=== PATIENT | male | born 1955 | race Caucasian/White ===

== ENCOUNTER 2017-05-13 04:17 | Emergency (ER) | payer BC ==
[2017-05-13] MEDS ORDERED: methylPREDNISolone Sod Succ/PF 125 MG/2 ML VIAL ONE (04:47)
[2017-05-13] MEDS ORDERED: Water For Inject, Bacteriostat 30 ML ONE (04:47)
[2017-05-13 04:58] LABS: #Eosinphils 0.4 thou/uL (0.0-0.7); #Lymphocytes 2.4 thou/uL (1.20-3.40); #Monocytes 0.7 thou/uL (0.11-0.59); #Neutrophils 6.5 thou/uL (1.40-6.50); %Basophils 0.4 % (0.0-1.0); %Eosinophils 3.6 % (0.0-10.0); %Lymphocytes 23.7 % (21.0-51.0); Hematocrit 49.6 % (42.0-52.0); Mean Platelet Volume 7.3 fL (7.4-10.4); Red Blood Cell (RBC) Count 5.81 mill/uL (4.70-6.10)
[2017-05-13] MEDS ORDERED: Azithromycin 250 MG TAB ONE (05:08)
[2017-05-13 05:24] LABS: Anion Gap 14 mmol/L (10-20); BUN (Urea Nitrogen) 12 mg/dL (8.4-25.7); Calc. Creatinine Clearance 0 mL/min (70-130); Calcium 9.5 mg/dL (7.8-10.44); Carbon Dioxide 26 mmol/L (23-31); Chloride 106 mmol/L (98-107); Estimated GFR-MDRD 75
--- NOTE | 2017-05-13 08:12 | RAD ---
PA AND LATERAL CHEST XRAY: DATE: 05/13/17. HISTORY: Dyspnea and wheezing. COMPARISON: 11/29/16. FINDINGS: Cardiac silhouette and pulmonary vasculature are within normal limits. Interstitial and parenchymal densities at each lung base have resolved. Lungs are clear on today's examination. Radiopaque den sity again overlies the cardiac silhouette. This could potentially represent a septal occluder don ce. This is unchanged compared to the prior exam. No other interval change. IMPRESSION: No acute cardiopulmonary process. POS: PATRICIA
--- NOTE | 2017-05-18 12:22 | EKG ---
Test Reason : Blood Pressure : / mmHG Vent. Rate : 089 BPM Atrial Rate : 089 BPM P-R Int : 210 ms QRS Dur : 100 ms QT Int : 372 ms P-R-T Axes : 059 103 048 degrees QTc Int : 452 ms Sinus rhythm with 1st degree A-V block with Fusion complexes Incomplete right bundle branch block Possible Right ventricular hypertrophy Abnormal ECG No specific ST-T segment abnormalities Confirmed by CHARLOTTE BHAKTA ([id number]), editor city [place] HALLMAN ([id number]) on 05/18/2017 12:22:01 PM Referred By: Confirmed By:CHARLOTTE BHAKTA
== END 2017-05-13 06:00 | disposition home or self-care (01) ==
LOC: ERS 04:17
DX: J45.901 Unspecified asthma with (acute) exacerbation (principal); E78.5 Hyperlipidemia, unspecified; F41.9 Anxiety disorder, unspecified; F32.9 Major depressive disorder, single episode, unspecified
CPT/HCPCS: 71020; 80048; 85025; 93005; 94640; 96374; J2930; J7620

== ENCOUNTER 2017-10-21 21:19 | Emergency (ER) | payer BC ==
[2017-10-21] MEDS ORDERED: Lorazepam 2 MG/ML VIAL ONE (21:46)
[2017-10-21 22:13] LABS: #Eosinphils 0.2 thou/uL (0.0-0.7); #Lymphocytes 1.8 thou/uL (1.20-3.40); #Monocytes 0.6 thou/uL (0.11-0.59); #Neutrophils 5.6 thou/uL (1.40-6.50); %Basophils 0.5 % (0.0-1.0); %Eosinophils 2.3 % (0.0-10.0); %Lymphocytes 22.2 % (21.0-51.0); %Monocytes 7.4 % (0.0-10.0); %Neutrophils 67.7 % (42.0-75.0); Hemoglobin 15.6 g/dL (14.0-18.0); Mean Corpuscular HGB CONC 33.6 g/dL (32.0-36.0); Mean Corpuscular Hemoglobin 28.1 pg (27.0-31.0); Mean Corpuscular Volume 83.6 fl (80.0-94.0); Platelet Count 195 thou/uL (130-400); RBC Distribution Width 11.7 % (11.5-14.5); Red Blood Cell (RBC) Count 5.58 mill/uL (4.70-6.10); White Blood Cell (WBC) Count 8.3 thou/uL (4.8-10.8)
[2017-10-21 22:34] LABS: Bilirubin Negative (Negative); Blood, Urine Negative (Negative); Clarity CLEAR (Clear); Glucose, Urine (Dipstick) Negative (Negative); Leukocyte Negative (Negative); Nitrite Negative (Negative); Protein, Urine (Dipstick) Negative (Neg-Trace); Specific Gravity, Urine 1.009 (1.002-1.036); Urobilinogen 0.2 mg/dL (0.2-1.0)
[2017-10-21 22:35] LABS: ALT (SGPT) 18 U/L (8-55); AST (SGOT) 16 U/L (5-34); Acetaminophen Less than 6.0 mcg/mL (10.0-30.0); Albumin 4.3 g/dL (3.4-4.8); Alcohol Less than 10 mg/dL (Less than 10); Alkaline Phosphatase 85 U/L (40-150); Anion Gap 14 mmol/L (10-20); BUN (Urea Nitrogen) 11 mg/dL (8.4-25.7); Bilirubin, Total 0.7 mg/dL (0.2-1.2); Calc. Creatinine Clearance 0 mL/min (70-130); Calcium 9.6 mg/dL (7.8-10.44); Carbon Dioxide 23 mmol/L (23-31); Chloride 103 mmol/L (98-107); Estimated GFR-MDRD 72; Globulin 2.7 g/dL (2.4-3.5); Glucose 115 mg/dL (80-115); Lipase 54 U/L (8-78); Potassium 3.5 mmol/L (3.5-5.1); Salicylate Less than 8.0 mg/dL (15.0-30.0); Sodium 136 mmol/L (136-145)
[2017-10-21 22:41] LABS: Amphetamine Not Detected (NotDetected); Barbiturates Screen Not Detected (NotDetected); Benzodiazepine Screen Not Detected (NotDetected); Cocaine Metabolite Screen Not Detected (NotDetected); Medtox Control Line Valid? VALID (VALID); Medtox Reader # READER 4; Methadone Not Detected (NotDetected); Methamphetamine Not Detected (NotDetected); Opiate Screen Not Detected (NotDetected); Oxycodone Screen Not Detected (NotDetected); Phencyclidine (PCP) Not Detected (NotDetected); THC/Cannabinoid Screen Not Detected (NotDetected); Tricyclic Screen Not Detected (NotDetected)
--- NOTE | 2017-10-26 11:45 | EKG ---
Test Reason : Blood Pressure : / mmHG Vent. Rate : 111 BPM Atrial Rate : 111 BPM P-R Int : 204 ms QRS Dur : 118 ms QT Int : 328 ms P-R-T Axes : 022 071 000 degrees QTc Int : 446 ms Sinus tachycardia Possible Left atrial enlargement Right bundle branch block Possible Inferior infarct , age undetermined Abnormal ECG Confirmed by JIMMY GRANDA, YELENA Gonzalez ([id number]), managing editor SWETHA JOHNSON ([id number]) on 10/26/2017 11:44:26 AM Referred By: Confirmed By:YELENA MARQUEZ MD
== END 2017-10-21 23:55 | disposition home or self-care (01) ==
LOC: ERS 21:19
DX: F41.9 Anxiety disorder, unspecified (principal); E78.5 Hyperlipidemia, unspecified; I25.2 Old myocardial infarction; F32.9 Major depressive disorder, single episode, unspecified; Z79.82 Long term (current) use of aspirin; Z79.899 Other long term (current) drug therapy
CPT/HCPCS: 80053; 80306; 80307; 81003; 83690; 84443; 85025; 93005; 96372; J2060

== ENCOUNTER 2020-07-06 10:00 | Outpatient (CLI) | payer MEDICARE ==
--- NOTE | 2020-07-06 10:32 | RAD ---
EXAM: Two views chest PROVIDED CLINICAL HISTORY: Dyspnea. COMPARISON: 05/13/2017 FINDINGS: Cardiac silhouette is within normal limits. Metallic occlusion device overlies the right medial aspec t of the cardiac silhouette also seen on prior exam. Pulmonary vasculature is within normal limits. Atelectasis is present at the right lung base. Lungs otherwise appear clear. There is prominence of t he left hilar structures, but similar appearance was seen on manager technology CT the chest in 2017, this likely represents prominence of the left main pulmonary artery which was noted on CT exam. A moderate -sized hiatal hernia is now present in the retrocardiac region. No other interval change. IMPRESSION: 1. Interval development of a moderate-sized hiatal hernia when compared to prior exam in 2017. 2. Atelectasis right lung base..
== END 2020-07-06 10:01 | disposition home or self-care (01) ==
LOC: BICRAD 10:00
PROVIDERS: ATTEND Internal Medicine Pulmonary Disease
DX: R06.00 Dyspnea, unspecified (principal); J98.11 Atelectasis; K44.9 Diaphragmatic hernia without obstruction or gangrene
CPT/HCPCS: 71046

== ENCOUNTER 2020-09-22 19:45 | Emergency (ER) | payer MEDICARE, OTHER ==
--- NOTE | 2020-09-22 20:10 | RAD ---
PORTABLE CHEST: 09/22/20 PROVIDED CLINICAL HISTORY: Dyspnea. FINDINGS: Comparison 09/26/16. The cardiac silhouette appears enlarged, but may be at least partially on the basis of portable techn ique. No focal consolidation, pleural fluid, or pneumothorax apparent. IMPRESSION: No evidence an acute cardiopulmonary process. POS: BESSY
[2020-09-22] MEDS ORDERED: methylPREDNISolone Sod Succ/PF 125 MG/2 ML VIAL ONE (20:13)
[2020-09-22] MEDS ORDERED: Albuterol 200 PUFF (6.7GM INHALER) ONE (20:24)
[2020-09-22 20:31] LABS: #Basophils 0.1 thou/uL (0.0-0.2); #Eosinphils 0.4 thou/uL (0.0-0.7); #Lymphocytes 2.3 thou/uL (1.20-3.40); #Monocytes 0.8 thou/uL (0.11-0.59); #Neutrophils 7.4 thou/uL (1.40-6.50); %Basophils 0.5 % (0.0-1.0); %Eosinophils 3.3 % (0.0-10.0); %Lymphocytes 20.7 % (21.0-51.0); %Monocytes 7.6 % (0.0-10.0); Hemoglobin 16.2 g/dL (14.0-18.0); Mean Corpuscular HGB CONC 32.6 g/dL (32.0-36.0); Mean Corpuscular Hemoglobin 27.9 pg (27.0-31.0); Mean Corpuscular Volume 85.6 fL (78.0-98.0); Mean Platelet Volume 7.6 fL (7.4-10.4); Platelet Count 211 thou/uL (130-400); RBC Distribution Width 12.9 % (11.5-14.5); White Blood Cell (WBC) Count 10.9 thou/uL (4.8-10.8)
[2020-09-22 20:45] LABS: ALT (SGPT) 25 U/L (8-55); AST (SGOT) 18 U/L (5-34); Albumin 4.3 g/dL (3.4-4.8); Alkaline Phosphatase 94 U/L (40-110); Anion Gap 13 mmol/L (10-20); BUN (Urea Nitrogen) 18 mg/dL (8.4-25.7); Bilirubin, Total 0.5 mg/dL (0.2-1.2); Calc. Creatinine Clearance 0 mL/min (70-130); Calcium 9.3 mg/dL (7.8-10.44); Carbon Dioxide 29 mmol/L (23-31); Chloride 103 mmol/L (98-107); Globulin 3.1 g/dL (2.4-3.5); Glucose 110 mg/dL (80-115); Potassium 3.6 mmol/L (3.5-5.1); Protein, Total 7.4 g/dL (5.8-8.1); Sodium 141 mmol/L (136-145)
== END 2020-09-22 21:09 | disposition home or self-care (01) ==
LOC: ERS 19:45
DX: J44.9 Chronic obstructive pulmonary disease, unspecified (principal); I10 Essential (primary) hypertension; E78.5 Hyperlipidemia, unspecified; I25.10 Atherosclerotic heart disease of native coronary artery without angina pectoris; I25.2 Old myocardial infarction; E78.00 Pure hypercholesterolemia, unspecified; Z79.51 Long term (current) use of inhaled steroids; Z79.899 Other long term (current) drug therapy; Z79.82 Long term (current) use of aspirin; E11.9 Type 2 diabetes mellitus without complications; Z79.84 Long term (current) use of oral hypoglycemic drugs; J45.31 Mild persistent asthma with (acute) exacerbation; Z20.822 Contact with and (suspected) exposure to COVID-19
CPT/HCPCS: 71045; 80053; 83880; 84484; 85025; 87040; 93005; 94664; 96374; 99285; U0003; U0005; 36415; 87635; J2930

== ENCOUNTER 2021-09-21 10:30 | Inpatient (IN) | payer MEDICARE, OTHER ==
[2021-09-21 12:35] VITALS: BMI 40.8
[2021-09-26] MEDS ORDERED: Acetaminophen 500 MG TAB ONE (08:14)
[2021-09-26] MEDS ORDERED: Ketorolac Tromethamine 30 MG/ML VIAL ONE (08:14)
[2021-09-26] MEDS ORDERED: Midazolam HCl 2 mg/2 ml Vial ONE (08:42)
[2021-09-26] MEDS ORDERED: Fentanyl 250 MCG/5 ML VIAL ONE ×2 (08:42→10:07)
[2021-09-26] MEDS ORDERED: Albuterol Sulfate 2.5 mg/3 ml Neb ONE (09:11)
[2021-09-26] MEDS ORDERED: Xylocaine 1% w/ Epi 1:100K 10 ML VIAL ONE (10:05)
[2021-09-26] MEDS ORDERED: Bupivacaine 0.25% HCL 30 ML VIAL ONE (10:05)
[2021-09-26] MEDS ORDERED: Dexmedetomidine 200 MCG/2 ML VIAL ONE (10:07)
[2021-09-26] MEDS ORDERED: Sodium Chloride 0.9% 100 ML ONE (10:16)
[2021-09-26] MEDS ORDERED: cefOXitin 2 GM VIAL ONE (10:16)
[2021-09-26] MEDS ORDERED: PROPOFOL 200 MG/20 ML VIAL ONE (10:31)
[2021-09-26] MEDS ORDERED: Bupivacaine HCl 0.5%/Epinephrine 1:200,000/PF 30 ml Vial ONE (10:31)
[2021-09-26] MEDS ORDERED: Lidocaine 1% PF 5 ML VIAL ONE (10:31)
[2021-09-26] MEDS ORDERED: Rocuronium Bromide 10 MG/ML (10ML VIAL) ONE (10:31)
[2021-09-26] MEDS ORDERED: PHENYLEPHRINE-NS 100 MCG/ML 10 ML SYRINGE ONE (10:31)
[2021-09-26] MEDS ORDERED: ePHEDrine 50 MG/ML VIAL ONE (10:31)
[2021-09-26] MEDS ORDERED: cefOXitin Sodium/Dextrose 2 GM/50 ML BAG ONE (12:17)
[2021-09-26] MEDS ORDERED: SUGAMMADEX SODIUM 200 MG/2 ML VIAL ONE (12:17)
[2021-09-26] MEDS ORDERED: Promethazine HCl 25 MG/ML VIAL IVPB PRN (13:45)
[2021-09-26] MEDS ORDERED: Ondansetron HCl/PF 4 MG/2 ML Vial IVP PRN (13:45)
[2021-09-26] MEDS ORDERED: Promethazine HCl 25 MG/ML VIAL IM PRN ×2 (13:45→13:55)
[2021-09-26] MEDS ORDERED: hydrALAZINE 20 MG/ML VIAL SLOW IVP PRN (13:55)
[2021-09-26] MEDS ORDERED: Morphine 4 MG/ML VIAL SLOW IVP PRN ×2 (13:55→15:37)
[2021-09-26] MEDS ORDERED: Ondansetron PF 4 MG/2 ML Vial IVP PRN (13:55)
[2021-09-26] MEDS ORDERED: Albuterol Sulfate 2.5 mg/3 ml Neb NEB PRN (15:30)
[2021-09-26] MEDS: Ketorolac Tromethamine 30 MG/ML VIAL IVP SCH ×2 (16:14→23:50)
[2021-09-26] MEDS: Mometasone 200 MCG/Formoterol 5 MCG 120 PUFF INHALER INH SCH (18:43)
[2021-09-26] MEDS: D5 1/2 NS w/20 mEq KCL 1,000 ML IV SCH ×2 (18:53→21:27)
[2021-09-26] MEDS: Enoxaparin Sodium 40 MG/0.4 ML SYRINGE SC SCH (21:27)
[2021-09-26] MEDS: Famotidine/PF 20 mg/2ml Vial SLOW IVP SCH (21:28)
[2021-09-26] MEDS: busPIRone HCl 5 MG TAB PO SCH (21:28)
[2021-09-26] MEDS: Rosuvastatin 5 MG TAB PO SCH (21:28)
[2021-09-26] MEDS: clonazePAM 0.5 MG TAB PO SCH (21:28)
[2021-09-26] MEDS: Famotidine 20 MG TAB PO SCH (21:28)
[2021-09-26] MEDS: Montelukast Sodium 10 mg Tablet PO SCH (21:28)
[2021-09-26] MEDS: Aripiprazole 10 MG TAB PO SCH (21:28)
[2021-09-27] MEDS: D5 1/2 NS w/20 mEq KCL 1,000 ML IV SCH ×3 (03:13→21:18)
[2021-09-27] MEDS: HYDROcodone/Acetaminophen 7.5/325 mg Tablet PO PRN ×2 (03:27→21:11)
[2021-09-27 05:24] LABS: #Lymphocytes 1.3 thou/uL (1.20-3.40); #Monocytes 0.9 thou/uL (0.11-0.59); #Neutrophils 12.3 thou/uL (1.40-6.50); %Basophils 0.3 % (0.0-1.0); %Eosinophils 0.1 % (0.0-10.0); %Lymphocytes 8.9 % (21.0-51.0); %Neutrophils 84.7 % (42.0-75.0); Hemoglobin 13.6 g/dL (14.0-18.0); Mean Corpuscular HGB CONC 31.6 g/dL (32.0-36.0); Mean Corpuscular Hemoglobin 27.8 pg (27.0-31.0); Mean Platelet Volume 7.2 fL (7.4-10.4); Platelet Count 174 thou/uL (130-400); RBC Distribution Width 12.9 % (11.5-14.5); White Blood Cell (WBC) Count 14.5 thou/uL (4.8-10.8)
[2021-09-27] MEDS: Ketorolac Tromethamine 30 MG/ML VIAL IVP SCH ×3 (06:13→17:35)
[2021-09-27 06:28] LABS: Anion Gap 12 mmol/L (10-20); BUN (Urea Nitrogen) 14 mg/dL (8.4-25.7); Calc. Creatinine Clearance 134 mL/min (70-130); Calcium 8.8 mg/dL (7.8-10.44); Carbon Dioxide 22 mmol/L (23-31); Chloride 107 mmol/L (98-107); Glucose 136 mg/dL (80-115); Potassium 4.2 mmol/L (3.5-5.1); Sodium 137 mmol/L (136-145)
[2021-09-27] MEDS: Mometasone 200 MCG/Formoterol 5 MCG 120 PUFF INHALER INH SCH ×2 (07:46→19:00)
[2021-09-27] MEDS: Aspirin 81 mg Enteric Coated Tablet PO SCH (07:58)
[2021-09-27] MEDS: busPIRone HCl 5 MG TAB PO SCH ×3 (07:58→21:11)
[2021-09-27] MEDS: metFORMIN 500 MG TAB PO SCH (07:59)
[2021-09-27] MEDS: Famotidine 20 MG TAB PO SCH ×2 (07:59→21:11)
[2021-09-27] MEDS: Escitalopram Oxalate 10 mg Tablet PO SCH (07:59)
[2021-09-27] MEDS: Famotidine/PF 20 mg/2ml Vial SLOW IVP SCH ×2 (08:06→21:17)
[2021-09-27] MEDS ORDERED: HYDROcodone/Acetaminophen 7.5/325 mg Tablet PO PRN (13:42)
[2021-09-27] MEDS: Enoxaparin Sodium 40 MG/0.4 ML SYRINGE SC SCH (21:11)
[2021-09-27] MEDS: Montelukast Sodium 10 mg Tablet PO SCH (21:11)
[2021-09-27] MEDS: clonazePAM 0.5 MG TAB PO SCH (21:11)
[2021-09-27] MEDS: Rosuvastatin 5 MG TAB PO SCH (21:11)
[2021-09-27] MEDS: Aripiprazole 10 MG TAB PO SCH (21:12)
[2021-09-28] MEDS: Ketorolac Tromethamine 30 MG/ML VIAL IVP SCH ×2 (00:31→06:46)
[2021-09-28] MEDS: D5 1/2 NS w/20 mEq KCL 1,000 ML IV SCH (06:46)
[2021-09-28] MEDS: Mometasone 200 MCG/Formoterol 5 MCG 120 PUFF INHALER INH SCH (07:32)
[2021-09-28] MEDS ORDERED: D5 1/2 NS w/20 mEq KCL 1,000 ML IV SCH (08:00)
[2021-09-28 08:33] VITALS: BP 106/64; TEMP 98.1
[2021-09-28] MEDS: Famotidine 20 MG TAB PO SCH (09:13)
[2021-09-28] MEDS: Escitalopram Oxalate 10 mg Tablet PO SCH (09:13)
[2021-09-28] MEDS: Aspirin 81 mg Enteric Coated Tablet PO SCH (09:13)
[2021-09-28] MEDS: metFORMIN 500 MG TAB PO SCH (09:13)
[2021-09-28] MEDS: busPIRone HCl 5 MG TAB PO SCH (09:13)
[2021-09-28] MEDS: Famotidine/PF 20 mg/2ml Vial SLOW IVP SCH (09:13)
== END 2021-09-28 11:50 | disposition home or self-care (01) | DRG 330 ==
LOC: SURG A 09-26 06:55 → SJJU 09-26 14:45
PROVIDERS: ADMIT Specialist; ATTEND Specialist
PROC: 0DTG4ZZ Resection of Left Large Intestine, Percutaneous Endoscopic Approach (ICD-10-PCS; principal; 2021-09-26)
DX: C18.6 Malignant neoplasm of descending colon (principal); Z68.41 Body mass index [BMI] 40.0-44.9, adult; E66.9 Obesity, unspecified
CPT/HCPCS: 36415; 36416; 74018; 80048; 85025; 88309; A4649; J0694; J1650; J1885; J2250; J2270; J2704; J3010; J3480; J3490; J7611; S0020

== ENCOUNTER 2021-09-21 10:56 | Outpatient (CLI) | payer MEDICARE, OTHER ==
[2021-09-21 12:56] LABS: #Basophils 0.1 10x3/uL (0.0-0.2); #Eosinphils 0.3 10x3/uL (0.0-0.5); #Monocytes 0.7 10x3/uL (0.0-1.1); #Neutrophils 4.7 10x3/uL (1.5-8.4); %Basophils 0.7 % (0.0-2.0); %Eosinophils 3.4 % (0.0-6.0); %Lymphocytes 30.5 % (18.0-47.0); %Monocytes 8.8 % (0.0-10.0); %Neutrophils 55.9 % (40.0-75.0); Hemoglobin 15.3 g/dL (13.5-17.5); Mean Corpuscular HGB CONC 31.8 g/dL (32.0-36.0); Mean Corpuscular Hemoglobin 27.1 pg (27.0-33.0); Mean Corpuscular Volume 85.3 fl (81.2-95.1); Mean Platelet Volume 10.3 fl (7.4-10.4); Platelet Count 193 10x3/uL (150-450); RBC Distribution Width 13.2 % (11.5-14.5); Red Blood Cell (RBC) Count 5.64 10x6/uL (4.32-5.72); White Blood Cell (WBC) Count 8.4 10x3/uL (3.5-10.5)
[2021-09-21 13:08] LABS: Anion Gap 16 mmol/L (10-20); BUN (Urea Nitrogen) 22 mg/dL (8.4-25.7); Calc. Creatinine Clearance 0 mL/min (70-130); Calcium 8.8 mg/dL (7.8-10.44); Carbon Dioxide 22 mmol/L (23-31); Chloride 106 mmol/L (98-107); Glucose 98 mg/dL (80-115); Potassium 4.4 mmol/L (3.5-5.1); Sodium 140 mmol/L (136-145)
[2021-09-21 20:33] LABS: SARS-CoV-2 PCR by NAA Not Detected (NotDetected)
== END 2021-09-21 10:57 | disposition home or self-care (01) ==
LOC: LABBT 10:56
PROVIDERS: ATTEND Specialist
DX: Z01.818 Encounter for other preprocedural examination (principal); C18.9 Malignant neoplasm of colon, unspecified; Z20.822 Contact with and (suspected) exposure to COVID-19
CPT/HCPCS: 80048; 82378; 83036; 85025; 93005; U0003; U0005; 93010